=== PATIENT | male | born 1965 | race Caucasian/White ===

== ENCOUNTER 2022-07-13 17:00 | Inpatient (IN) | payer MEDICAID, SELFPAY ==
[~2022-07-13 17:00] MED LIST: GASTROGRAFIN 30 ML BOT ONE; Iopamidol-370 76% 500 ML 1 ML ONE
[2022-07-13 17:46] LABS: Hemoglobin 6.4 g/dL (14.0-18.0); Mean Corpuscular Hemoglobin 47.5 pg (27.0-31.0); Mean Platelet Volume 10.4 fL (7.4-10.4); Platelet Count 98 10x3/uL (130-400); RBC Distribution Width 19.6 % (11.5-14.5); Red Blood Cell (RBC) Count 1.35 mill/uL (4.70-6.10); White Blood Cell (WBC) Count 3.1 10x3/uL (4.8-10.8)
[2022-07-13] MEDS ORDERED: Aspirin Chewable 81 MG TAB ONE (17:48)
[2022-07-13 18:01] LABS: ALT (SGPT) 32 U/L (8-55); AST (SGOT) 52 U/L (5-34); Alkaline Phosphatase 45 U/L (40-110); Anion Gap 13 mmol/L (10-20); BUN (Urea Nitrogen) 18 mg/dL (8.4-25.7); Bilirubin, Total 2.1 mg/dL (0.2-1.2); Calc. Creatinine Clearance 0 mL/min (70-130); Calcium 8.6 mg/dL (7.8-10.44); Carbon Dioxide 23 mmol/L (22-29); Chloride 105 mmol/L (98-107); Estimated GFR 105; Globulin 2.2 g/dL (2.4-3.5); Glucose 104 mg/dL (70-105); Lipase 15 U/L (8-78); Potassium 3.9 mmol/L (3.5-5.1); Protein, Total 6.2 g/dL (6.0-8.3); Sodium 137 mmol/L (136-145)
[2022-07-13 18:45] LABS: Anisocytosis SLIGHT = 6-15 cells (100X) (0-5/hpf); MDiff Complete? YES; Macrocytosis MODERATE=16-30 cells (100X) (0-5/hpf); Ovalocytes SLIGHT = 2-5 cells (100X) (0-1/hpf); Platelet Morphology Comment Appears Decreased; Polychromasia SLIGHT = 2-3 cells (100X) (0-2/hpf); Tear Drops SLIGHT = 2-5 cells (100X) (0-1/hpf)
[2022-07-13 18:46] LABS: #Eosinphils 0.1 thou/uL (0.0-0.7); #Lymphocytes 1.2 thou/uL (1.20-3.40); #Monocytes 0.2 thou/uL (0.11-0.59); #Neutrophils 1.7 thou/uL (1.40-6.50); %Basophils 0.3 % (0.0-1.0); %Eosinophils 2.3 % (0.0-10.0); %Lymphocytes 38.6 % (21.0-51.0); %Monocytes 5.6 % (0.0-10.0); %Neutrophils 53.1 % (42.0-75.0)
[2022-07-13] MEDS ORDERED: Ondansetron ODT 4 MG TAB PO PRN (19:14)
[2022-07-13] MEDS ORDERED: Dextrose 5 %-0.45 % NaCl 1,000 ML IV SCH (19:15)
[2022-07-13 20:12] LABS: Iron 243 ug/dL (65-175); Iron Binding Capacity, Total 231 mcg/dL (261-462)
[2022-07-13 20:27] LABS: Troponin I Less than 0.010 ng/mL (< 0.028)
[2022-07-13] MEDS ORDERED: Senokot S 8.6-50 MG TAB PO PRN (21:55)
[2022-07-13] MEDS ORDERED: Acetaminophen 325 MG TAB PO PRN (21:55)
[2022-07-13 22:34] VITALS: BMI 25.7
[2022-07-14 00:03] LABS: Troponin I Less than 0.010 ng/mL (< 0.028)
[2022-07-14] MEDS: Carvedilol 3.125 MG TAB PO SCH ×3 (02:03→20:33)
[2022-07-14 06:51] LABS: #Eosinphils 0.1 thou/uL (0.0-0.7); #Lymphocytes 1.1 thou/uL (1.20-3.40); #Monocytes 0.2 thou/uL (0.11-0.59); #Neutrophils 1.1 thou/uL (1.40-6.50); %Basophils 0.5 % (0.0-1.0); %Eosinophils 3.9 % (0.0-10.0); %Lymphocytes 44.5 % (21.0-51.0); %Neutrophils 44.2 % (42.0-75.0); Hemoglobin 7.6 g/dL (14.0-18.0); Mean Corpuscular HGB CONC 36.1 g/dL (32.0-36.0); Mean Corpuscular Hemoglobin 41.6 pg (27.0-31.0); Mean Platelet Volume 10.4 fL (7.4-10.4); Platelet Count 84 10x3/uL (130-400); Red Blood Cell (RBC) Count 1.83 mill/uL (4.70-6.10); White Blood Cell (WBC) Count 2.5 10x3/uL (4.8-10.8)
[2022-07-14 07:07] LABS: Anion Gap 10 mmol/L (10-20); BUN (Urea Nitrogen) 14 mg/dL (8.4-25.7); Calc. Creatinine Clearance 139 mL/min (70-130); Calcium 8.2 mg/dL (7.8-10.44); Carbon Dioxide 23 mmol/L (22-29); Chloride 107 mmol/L (98-107); Estimated GFR 110; Glucose 104 mg/dL (70-105); Sodium 136 mmol/L (136-145)
[2022-07-14] MEDS ORDERED: Cyanocobalamin 1000 MCG/ML VIAL IM SCH (09:00)
[2022-07-14] MEDS ORDERED: Pantoprazole 40 MG VIAL ONE (10:40)
[2022-07-14] MEDS: Atorvastatin Calcium 10 MG TAB PO SCH (10:47)
[2022-07-14] MEDS: Pantoprazole 40 MG VIAL IVP SCH (10:47)
[2022-07-15 04:30] LABS: #Eosinphils 0.1 thou/uL (0.0-0.7); #Lymphocytes 1.2 thou/uL (1.20-3.40); #Monocytes 0.2 thou/uL (0.11-0.59); #Neutrophils 1.3 thou/uL (1.40-6.50); %Basophils 0.4 % (0.0-1.0); %Eosinophils 5.1 % (0.0-10.0); %Lymphocytes 42.2 % (21.0-51.0); %Monocytes 5.9 % (0.0-10.0); %Neutrophils 46.4 % (42.0-75.0); Hemoglobin 7.1 g/dL (14.0-18.0); Mean Corpuscular HGB CONC 35.7 g/dL (32.0-36.0); Mean Corpuscular Hemoglobin 41.5 pg (27.0-31.0); Mean Platelet Volume 10.8 fL (7.4-10.4); Platelet Count 83 10x3/uL (130-400); RBC Distribution Width 23.7 % (11.5-14.5); Red Blood Cell (RBC) Count 1.71 mill/uL (4.70-6.10); White Blood Cell (WBC) Count 2.8 10x3/uL (4.8-10.8)
[2022-07-15 04:42] LABS: INR-International Normal Ratio 1.1; PTT 27.1 sec (22.9-36.1); Prothrombin Time 14.6 sec (12.0-14.7)
[2022-07-15 04:45] LABS: Anion Gap 10 mmol/L (10-20); BUN (Urea Nitrogen) 15 mg/dL (8.4-25.7); Calc. Creatinine Clearance 121 mL/min (70-130); Calcium 8.3 mg/dL (7.8-10.44); Carbon Dioxide 24 mmol/L (22-29); Chloride 107 mmol/L (98-107); Estimated GFR 106; Glucose 93 mg/dL (70-105); Potassium 4.3 mmol/L (3.5-5.1); Sodium 137 mmol/L (136-145); Uric Acid 3.8 mg/dL (3.5-7.2)
[2022-07-15 08:50] LABS: Ref Lab Test Ordered Antiparietal Cell AB; Reference Lab Name LABCORP
[2022-07-15] MEDS: Folic Acid 1 MG TAB PO SCH (09:32)
[2022-07-15] MEDS: Atorvastatin Calcium 10 MG TAB PO SCH (09:32)
[2022-07-15] MEDS: Carvedilol 3.125 MG TAB PO SCH ×2 (09:32→21:53)
[2022-07-15] MEDS: Pantoprazole 40 MG VIAL IVP SCH (09:33)
[2022-07-15] MEDS: Cyanocobalamin (Vitamin B-12) 1,000 MCG TAB PO SCH (09:33)
[2022-07-15] MEDS ORDERED: Fentanyl 100 MCG/2 ML VIAL ONE (10:42)
[2022-07-15] MEDS ORDERED: Midazolam HCl 2 mg/2 ml Vial ONE (10:42)
[2022-07-15] MEDS ORDERED: Sodium Bicarbonate 2.5 MEQ/5 ML VIAL ONE (10:42)
[2022-07-16 05:40] LABS: Anion Gap 11 mmol/L (10-20); BUN (Urea Nitrogen) 18 mg/dL (8.4-25.7); Calc. Creatinine Clearance 127 mL/min (70-130); Calcium 8.4 mg/dL (7.8-10.44); Carbon Dioxide 24 mmol/L (22-29); Chloride 107 mmol/L (98-107); Estimated GFR 107; Glucose 114 mg/dL (70-105); Potassium 3.8 mmol/L (3.5-5.1); Sodium 138 mmol/L (136-145)
[2022-07-16 05:48] LABS: #Eosinphils 0.1 thou/uL (0.0-0.7); #Lymphocytes 1.2 thou/uL (1.20-3.40); #Monocytes 0.2 thou/uL (0.11-0.59); #Neutrophils 1.2 thou/uL (1.40-6.50); %Basophils 0.3 % (0.0-1.0); %Eosinophils 4.7 % (0.0-10.0); %Lymphocytes 44.6 % (21.0-51.0); %Neutrophils 44.6 % (42.0-75.0); Hemoglobin 7.6 g/dL (14.0-18.0); Mean Corpuscular HGB CONC 35.3 g/dL (32.0-36.0); Mean Corpuscular Hemoglobin 41.1 pg (27.0-31.0); Mean Platelet Volume 10.7 fL (7.4-10.4); Platelet Count 81 10x3/uL (130-400); RBC Distribution Width 23.3 % (11.5-14.5); Red Blood Cell (RBC) Count 1.84 mill/uL (4.70-6.10); White Blood Cell (WBC) Count 2.6 10x3/uL (4.8-10.8)
[2022-07-16] MEDS: Cyanocobalamin (Vitamin B-12) 1,000 MCG TAB PO SCH (10:25)
[2022-07-16] MEDS: Atorvastatin Calcium 10 MG TAB PO SCH (10:25)
[2022-07-16] MEDS: Carvedilol 3.125 MG TAB PO SCH (10:25)
[2022-07-16] MEDS: Pantoprazole 40 MG VIAL IVP SCH (10:26)
[2022-07-16] MEDS: Folic Acid 1 MG TAB PO SCH (10:26)
[2022-07-16 15:52] VITALS: BP 100/56; TEMP 97.7
[2022-07-17] MEDS ORDERED: FLU VACC QS2022-23(6MOS UP)/PF 60 MCG/0.5 ML SYRINGE IM ONE (09:00)
== END 2022-07-16 18:45 | disposition home or self-care (01) | DRG 810 ==
LOC: ERS 17:00 → ERHOLD 19:23 → OBSVTOIN 21:55 → 2NO 07-14 16:06
PROVIDERS: ADMIT Student in an Organized Health Care Education/Training Program; ATTEND Hospitalist
PROC: 30233N1 Transfusion of Nonautologous Red Blood Cells into Peripheral Vein, Percutaneous Approach (ICD-10-PCS; principal; 2022-07-13)
PROC: 07DR3ZX Extraction of Iliac Bone Marrow, Percutaneous Approach, Diagnostic (ICD-10-PCS; 2022-07-15)
DX: D61.818 Other pancytopenia (principal); M54.10 Radiculopathy, site unspecified; Z20.822 Contact with and (suspected) exposure to COVID-19; I25.10 Atherosclerotic heart disease of native coronary artery without angina pectoris; I10 Essential (primary) hypertension; K21.9 Gastro-esophageal reflux disease without esophagitis; E53.8 Deficiency of other specified B group vitamins; F17.210 Nicotine dependence, cigarettes, uncomplicated; Z79.82 Long term (current) use of aspirin; Z79.899 Other long term (current) drug therapy; I25.2 Old myocardial infarction; Z90.49 Acquired absence of other specified parts of digestive tract
CPT/HCPCS: 36415; 36430; 38222; 71045; 71260; 72128; 72131; 74177; 77012; 80048; 80053; 82607; 83540; 83550; 83615; 83690; 84484; 84550; 85025; 85046; 85097; 85610; 85730; 86850; 86900; 86901; 87338; 88184; 88185; 88237; 88305; 88311; 88313; 88341; 88342; 93005; C9113; J2250; J3010; J7042; P9016; Q9963; Q9967; U0003; U0005

== ENCOUNTER 2023-03-14 13:17 | Emergency (ER) | payer MEDICAID ==
[2023-03-14 14:11] LABS: #Basophils 0.1 thou/uL (0.0-0.2); #Eosinphils 0.2 thou/uL (0.0-0.7); #Monocytes 1.3 thou/uL (0.11-0.59); #Neutrophils 9.9 thou/uL (1.40-6.50); %Basophils 0.4 % (0.0-1.0); %Eosinophils 1.9 % (0.0-10.0); %Lymphocytes 7.6 % (21.0-51.0); %Monocytes 10.2 % (0.0-10.0); %Neutrophils 79.5 % (42.0-75.0); Hematocrit 40.4 % (42.0-52.0); Hemoglobin 13.6 g/dL (14.0-18.0); Mean Corpuscular HGB CONC 33.7 g/dL (32.0-36.0); Mean Corpuscular Hemoglobin 29.5 pg (27.0-31.0); Mean Corpuscular Volume 87.6 fl (78.0-98.0); Mean Platelet Volume 9.3 fL (7.4-10.4); Platelet Count 249 10x3/uL (130-400); RBC Distribution Width 13.6 % (11.5-14.5); Red Blood Cell (RBC) Count 4.61 mill/uL (4.70-6.10); White Blood Cell (WBC) Count 12.5 10x3/uL (4.8-10.8)
[2023-03-14 14:38] LABS: ALT (SGPT) 15 U/L (8-55); AST (SGOT) 14 U/L (5-34); Albumin 3.2 g/dL (3.5-5.0); Alkaline Phosphatase 64 U/L (40-110); Anion Gap 11 mmol/L (10-20); BUN (Urea Nitrogen) 10 mg/dL (8.4-25.7); Bilirubin, Total 0.3 mg/dL (0.2-1.2); Calc. Creatinine Clearance 0 mL/min (70-130); Calcium 8.7 mg/dL (7.8-10.44); Carbon Dioxide 25 mmol/L (22-29); Chloride 104 mmol/L (98-107); Estimated GFR 103; Globulin 2.6 g/dL (2.4-3.5); Glucose 103 mg/dL (70-105); Lipase 9 U/L (8-78); Potassium 3.5 mmol/L (3.5-5.1); Protein, Total 5.8 g/dL (6.0-8.3); Sodium 136 mmol/L (136-145)
[2023-03-14 14:40] LABS: PTT 27.8 sec (22.9-36.1); Prothrombin Time 13.7 sec (12.0-14.7)
[2023-03-14 15:02] LABS: Bacteria/HPF None Seen HPF (None Seen); Bilirubin Negative (Negative); Blood, Urine 1+ (Negative); CAUTI Indications for Culture Dysuria,urgency,freq; Clarity Turbid (Clear); Glucose, Urine (Dipstick) Normal (Negative); Ketone, Urine Negative (Negative); Leukocyte 500 Leu/uL (Negative); Nitrite 1+ (Negative); Protein, Urine (Dipstick) 30 mg/dL (Neg-Trace); Specific Gravity, Urine 1.022 (1.002-1.036); Squamous Epithelial 0-3 HPF (0-3); Urobilinogen 12 mg/dL (Less than 2); WBC/HPF Greater than 50 HPF (0-3); pH, Urine 5.5 (5.0-9.0)
[2023-03-14 15:04] LABS: Urine Culture Reflex Yes Yes
[2023-03-14] MEDS ORDERED: Sterile Water 10 ML ONE (15:16)
[2023-03-14] MEDS ORDERED: cefTRIAXone (ROCEPHIN) 1 GM VIAL ONE (15:16)
== END 2023-03-14 15:25 | disposition home or self-care (01) ==
LOC: ERS 13:17
DX: N30.01 Acute cystitis with hematuria (principal); I10 Essential (primary) hypertension; K21.9 Gastro-esophageal reflux disease without esophagitis; I25.10 Atherosclerotic heart disease of native coronary artery without angina pectoris; F17.210 Nicotine dependence, cigarettes, uncomplicated
CPT/HCPCS: 36415; 74176; 80053; 81001; 83605; 83690; 85025; 85610; 85730; 87077; 87086; 87186; 96372; J0696

== ENCOUNTER 2023-10-27 11:23 | Emergency (ER) | payer MEDICAID, SELFPAY ==
[2023-10-27] MEDS ORDERED: Acetaminophen 500 MG TAB ONE (13:40)
== END 2023-10-27 14:57 | disposition home or self-care (01) ==
LOC: ERS 11:23
DX: B02.9 Zoster without complications (principal); I25.10 Atherosclerotic heart disease of native coronary artery without angina pectoris; I25.2 Old myocardial infarction; I10 Essential (primary) hypertension; F17.210 Nicotine dependence, cigarettes, uncomplicated
CPT/HCPCS: 71045; 93005